=== PATIENT | male | born 1950 | race Caucasian/White ===

== ENCOUNTER 2017-12-24 02:13 | Outpatient (CLI) | payer MEDICARE, BC, SELFPAY ==
--- NOTE | 2017-12-28 14:29 | HOLTER_ITS ---
HOLTER MONITOR REPORT STUDY INDICATION: Arrhythmias. REQUESTING PROVIDER: Alonso Newell M.D. FINDINGS: The patient was monitored for one day. Baseline rhythm sinus rhythm with PAC's. Average heart rate 66 bpm, range 49-118 bpm. Frequent ventricular ectopy, 12,414 beats per day. No ventricular tachycardia. Rare PAC's, 33 per day. Three atrial runs, longest 5 beats, fastest 148 bpm. Nocturnal sinus bradycardia. No high-degree heart block. No pauses greater than three seconds. No patient events. FINAL INTERPRETATION: Very frequent PVC's, asymptomatic.
== END 2017-12-24 02:33 ==
PROVIDERS: PCP Family Medicine; Visit Provider Family Medicine
DX: R00.1 Bradycardia, unspecified (principal); I49.3 Ventricular premature depolarization; I49.1 Atrial premature depolarization
CPT/HCPCS: 93225

== ENCOUNTER 2017-12-28 09:18 | Outpatient (CLI) | payer MEDICARE, BC, SELFPAY | END 2017-12-28 09:38 | PROVIDERS: PCP Family Medicine; Visit Provider Family Medicine | DX: R00.1 Bradycardia, unspecified (principal); I49.3 Ventricular premature depolarization; I49.1 Atrial premature depolarization | CPT/HCPCS: 93226 ==

== ENCOUNTER 2017-12-28 11:14 | Outpatient (CLI) | payer MEDICARE, BC, SELFPAY | END 2017-12-28 11:34 | PROVIDERS: PCP Family Medicine; Referring Provider Family Medicine; Visit Provider Student in an Organized Health Care Education/Training Program | DX: R00.1 Bradycardia, unspecified (principal); I49.3 Ventricular premature depolarization; I49.1 Atrial premature depolarization | CPT/HCPCS: 93227 ==

== ENCOUNTER 2018-02-18 12:11 | Outpatient (CLI) | payer MEDICARE, BC, SELFPAY ==
[2018-02-18 15:05] LABS: Cholesterol 240 mg/dL (50-200); HDL Cholesterol 64 mg/dL (40-60); LDL CHOLESTEROL 163 mg/dL (<100); Triglyceride 53 mg/dL (30-150)
[2018-02-19 08:53] LABS: PSA, Screening 0.9 ng/ml (0-4.5)
== END 2018-02-18 12:31 ==
PROVIDERS: PCP Family Medicine; Visit Provider Urology
DX: E78.5 Hyperlipidemia, unspecified (principal); Z12.5 Encounter for screening for malignant neoplasm of prostate
CPT/HCPCS: 36415; 80061; 83721; 84153

== ENCOUNTER 2019-01-13 08:57 | Outpatient (CLI) | payer MEDICARE, BC, SELFPAY ==
[2019-01-13 11:07] LABS: Abs Immature Grans 0.01 k/cumm (0.0-0.09); Absolute Basophil Count 0.02 k/cumm (0.0-0.2); Absolute Eosinophil Count 0.14 k/cumm (0.0-0.7); Absolute Lymphocyte Count 1.43 k/cumm (1.2-3.4); Absolute Monocyte Count 0.63 k/cumm (0.11-0.7); Absolute Neutrophil Count 2.36 k/cumm (1.2-6.7); Basophils % 0.4; Eosinophils % 3.1; HCT 46.2 % (40.0-50.0); HGB 15.2 g/dL (13.5-17.5); Immature Grans % 0.2; Lymphocytes % 31.2; Mean Corp. HGB Concentration 32.9 g/dL (32.0-36.0); Mean Corpuscular Hemoglobin 32.2 pg (27.0-33.0); Mean Corpuscular Volume 97.9 fL (80-95); Mean Platelet Volume 10.1 fL (8.0-11.0); Monocytes % 13.7; Neutrophils % 51.4; Platelet Count 217 x1000/uL (130-400); RBC 4.72 m/cumm (4.50-6.00); RBC Distribution Width 13.5 % (11.8-14.1); White Blood Cell Count 4.59 k/cumm (4.4-10.8)
[2019-01-13 11:50] LABS: Anion Gap 8.9 mmol/L (3-11); BUN 23 mg/dL (7-18); CO2 29.1 mmol/L (21.0-32.0); CREATININE 1.09 mg/dL (0.70-1.30); Calcium 9.2 mg/dL (8.5-10.1); Calculated LDL 169 mg/dL; Chloride 106 mmol/L (98-107); Cholesterol 248 mg/dL (<200); Glucose 86 mg/dL (74-106); HDL Cholesterol 69 mg/dL (40-60); Potassium 4.5 mmol/L (3.5-5.1); Sodium 144 mmol/L (136-145); Triglyceride 50 mg/dL (<150)
== END 2019-01-13 09:17 ==
PROVIDERS: PCP Family Medicine; Visit Provider Family Medicine
DX: I10 Essential (primary) hypertension (principal); E78.5 Hyperlipidemia, unspecified; R53.83 Other fatigue
CPT/HCPCS: 36415; 80048; 80061; 85025

== ENCOUNTER 2019-02-24 09:35 | Outpatient (CLI) | payer MEDICARE, BC, SELFPAY ==
--- NOTE | 2019-02-24 09:29 | DI.RAD_ITS ---
EXAM: XR HAND RT COMPLETE INDICATION: R thumb pain and deformity, hand pain. COMPARISON: No exams were available for comparison TECHNIQUE: 2D digital imaging was performed. FINDINGS: There is moderate narrowing and spurring at the 1st metacarpal phalangeal joint. There is some flexi on at the 1st metacarpal phalangeal joint. There is also narrowing and periarticular spurring at the 2nd metacarpal phalangeal joint. Milder degenerative changes are seen in the interphalangeal joints of the fingers. IMPRESSION: Reff-km-ydnedfad degenerative changes, greatest at the 1st and 2nd metacarpal phalangeal joints.
--- NOTE | 2019-02-24 09:30 | DI.RAD_ITS ---
EXAM: XR HAND LT COMPLETE INDICATION: eval L thumb and hand pain. COMPARISON: XR HAND RT COMPLETE from 02/24/2019 TECHNIQUE: 2D digital imaging was performed. FINDINGS: There are tfpa-[id number]-qiccpqsg degenerative changes of the 1st MTP joint. There is some joint space narr owing and periarticular spurring. Degenerative changes are also noted at the interphalangeal joint o f the thumb. Milder degenerative changes are seen at the distal interphalangeal joints of the finger s. No bony erosions are identified. IMPRESSION: Degenerative changes, greater at the 1st carpal metacarpal joint.
== END 2019-02-24 09:55 ==
PROVIDERS: PCP Family Medicine; Referring Provider Family Medicine; Visit Provider Student in an Organized Health Care Education/Training Program
DX: M79.645 Pain in left finger(s) (principal); M18.12 Unilateral primary osteoarthritis of first carpometacarpal joint, left hand; M79.644 Pain in right finger(s); M18.11 Unilateral primary osteoarthritis of first carpometacarpal joint, right hand; M25.341 Other instability, right hand
CPT/HCPCS: 99203; 99214; 73130

== ENCOUNTER 2019-03-18 01:59 | Outpatient (CLI) | payer MEDICARE, BC, SELFPAY ==
[2019-03-18] MEDS: Breeza Beverage 473 ML BTL PO ×2 (08:50→08:51)
[2019-03-18] MEDS: Omnipaque 350 MG/ML 50 ML BTL IJ (08:51)
[2019-03-18] MEDS: Normal Saline - Diluent 50 ML VIAL IV (08:51)
[2019-03-18] MEDS: Omnipaque 350 MG/ML 100 ML BTL IJ (08:52)
--- NOTE | 2019-03-18 08:53 | DI.CT_ITS ---
EXAM: CT ABDOMEN W CLINICAL HISTORY: abdominal pain, not responsive to H2 basilio,R10.9 COMPARISON: No exams were available for comparison FINDINGS: CT examination of the abdomen was performed with a bolus infusion of 100 cc of Omnipaque 350 and horace stion of dilute barium. Images obtained through the lung bases are unremarkable. No significant hia julio c hernia seen. Liver and spleen appear normal. Pancreas appears normal. No biliary dilatation. Unremarkable appearance of the gallbladder by CT criteria. There is question of wall thickening of t he gastric antrum, gastritis not excluded. Endoscopic correlation may be obtained if clinically miley cated. Abdominal aorta is of normal diameter and no major vascular abnormality is seen. Unremarkable appear ance of the adrenals and kidneys. No adenopathy in the upper abdomen. IMPRESSION: Question gastric antral wall thickening, this could represent inflammation, endoscopic correlation s uggested to evaluate the possibility of gastritis or other pathology.
== END 2019-03-18 02:19 ==
PROVIDERS: PCP Family Medicine; Visit Provider Family Medicine
DX: R10.9 Unspecified abdominal pain (principal); K31.89 Other diseases of stomach and duodenum
CPT/HCPCS: 74160; J3490; Q9967

== ENCOUNTER → 2019-04-15 08:48 | Outpatient (BNVA) | payer MEDICARE, BC, SELFPAY | PROVIDERS: PCP Family Medicine; Referring Provider Family Medicine; Visit Provider Student in an Organized Health Care Education/Training Program | DX: M18.12 Unilateral primary osteoarthritis of first carpometacarpal joint, left hand (principal); M18.11 Unilateral primary osteoarthritis of first carpometacarpal joint, right hand; M25.341 Other instability, right hand | CPT/HCPCS: 99213 ==

== ENCOUNTER 2020-03-08 02:39 | Outpatient (CLI) | payer MEDICARE, BC, SELFPAY ==
[2020-03-09 13:38] LABS: COVID-19 RT-PCR UVMMC Result Negative (Negative)
== END 2020-03-08 02:59 ==
PROVIDERS: PCP Family Medicine; Visit Provider Family Medicine
DX: Z11.52 Encounter for screening for COVID-19 (principal); Z01.818 Encounter for other preprocedural examination
CPT/HCPCS: U0003

== ENCOUNTER 2020-03-12 01:09 | Outpatient (CLI) | payer MEDICARE, BC, SELFPAY ==
--- NOTE | 2020-03-12 09:00 | ETT_ITS ---
APPROVED REPORT Exam: Exercise Treadmill Patient Location: Out-Patient Room/Bed: Stress Nurse: Izzy Jones RN Ordering Provider:SABAS RODRIGUEZ, Contact Number: [phone] BMI: 5.20 Baseline Rhythm: Sinus Rhythm Comment: PVCs Indications: Chest pain, ESCOBAR Medical History Medical History: CISCO, arthritis, inguinal hernia repair, hyperlipidemia Cardiac Medications: None Allergies: NKA Cardiac Risk Factors: Hyperlipidemia, family hx Previous Cardiac Procedures: None Pretest Chest Pain Characteristics: None Exercise History: Physically active Physical Disabilities: None Lung Sounds: Clear to auscultation Heart Sounds: Regular Stress Test Details Test: Exercise stress testing was performed using a [place] protocol. Rest Stress HR Resting HR Supine: 63 bpm Max Heart Rate (APMHR): 149 bpm Resting HR Standin bpm Target HR (85% APMHR): 126 bpm Max HR Achieved: 160 bpm % of APMHR: 107 Recovery HR: 77 bpm HR response to stress: Normal HR response to stress BP Resting BP Supine: 146/82 mmHg Resting BP Standin/78 mmHg Max BP: 172/70 mmHg Recovery BP: 148/76 mmHg BP response to stress: Normal blood pressure response to stress. ECG Resting ECG: Sinus Rhythm Ectopy: PVCs Stress ECG: Sinus Tachycardia ST Change: No significant ST segment changes notedssion Arrhythmia: PAC, frequent PVCs, couplet, triplet, bigeminy Recovery ECG: Sinus Rhythm Recovery ST Change: No significant ST segment changes noted Recovery Arrhythmia: frequent PVCs, couplet, Clinical Reason for Termination: Dizziness, Fatigue Stress Symptoms: Dizziness, General Fatigue Exercise duration: 13 min04 sec Highest Stage Reached: Stage 5: 5.0 mph at 18% grade. Exercise capacity: 14.22 METs Rate Pressure Product: [id number] Stress ECG Conclusion 1. The patient exercised for 13 minutes (14 METS). Exercise was stopped due to fatigue. 2. The patient no symptoms suggestive of ischemia. 3. The patient had frequent PVCs both during exercise and recovery. These were polymorphic in nature . 4. There was no evidence of ischemia on the ECG portion of the exam. 5. The Mistry Score (12) estimates an annual cardiovascular mortality of 0% and a five year survival of 96%. Using the Mistry Score there is a low probability of any angiographic coronary disease.
[2020-03-12 11:08] LABS: Calculated LDL 154 mg/dL (<100); Cholesterol 234 mg/dL (<200); HDL Cholesterol 72 mg/dL (40-60); Triglyceride 43 mg/dL (<150)
== END 2020-03-12 01:29 ==
PROVIDERS: PCP Family Medicine; Visit Provider Nurse Practitioner Family
DX: R07.9 Chest pain, unspecified (principal); R06.09 Other forms of dyspnea; E78.5 Hyperlipidemia, unspecified; Z82.49 Family history of ischemic heart disease and other diseases of the circulatory system
CPT/HCPCS: 36415; 80061; 93016; 93018; 93017

== ENCOUNTER 2020-03-20 09:33 | Outpatient (CLI) | payer MEDICARE, BC, SELFPAY ==
[2020-03-20 13:05] LABS: HGB 14.9 g/dL (13.5-17.5); MCH 31.8 pg (27.0-33.0); MCHC 32.4 % (32.0-36.0); MCV 98.3 fL (80-95); MPV 10.5 fL (8.0-11.0); Platelet Count 206 10^3/uL (130-400); RBC 4.68 10^6/uL (4.36-5.78); RDW-SD 47.3 fL; WBC 3.71 10^3/uL (4.4-10.8)
[2020-03-20 17:01] LABS: Prolactin 6.1 ng/mL (2.1-17.7)
[2020-03-23 15:17] LABS: Testosterone, Free 9.72 ng/dL (3.28-12.2); Testosterone, Total 1080 ng/dL (240-950)
== END 2020-03-20 09:34 | disposition home or self-care (01) ==
LOC: LOS 09:33
PROVIDERS: PCP Family Medicine; Visit Provider Family Medicine
DX: D64.9 Anemia, unspecified (principal); N62 Hypertrophy of breast
CPT/HCPCS: 36415; 84402; 84403; 85027; 84146

== ENCOUNTER 2020-03-29 00:53 | Outpatient (CLI) | payer MEDICARE, BC, SELFPAY ==
--- NOTE | 2020-03-29 07:00 | DI.RAD_ITS ---
EXAM: XR CHEST 2V PA LATERAL CLINICAL HISTORY: chest pain with some sob on exertion,r07.9. TECHNIQUE: 2D digital imaging was performed. COMPARISON: No exams were available for comparison FINDINGS: Heart size is normal. The mediastinum is not widened. Lungs are clear. No infiltrates nor pleural effusions. IMPRESSION: No acute pulmonary findings. DATA REPOSITORY: RADIATION DOSE DELIVERED:
== END 2020-03-29 00:54 ==
LOC: DI 00:53
PROVIDERS: PCP Family Medicine; Visit Provider Family Medicine
DX: R07.9 Chest pain, unspecified (principal); R06.02 Shortness of breath
CPT/HCPCS: 71046

== ENCOUNTER 2020-09-07 01:33 | Outpatient (CLI) | payer MEDICARE, BC, SELFPAY ==
[2020-09-07 12:34] LABS: LDL CHOLESTEROL 126 mg/dL (<100)
== END 2020-09-07 01:34 | disposition home or self-care (01) ==
LOC: LOS 01:33
PROVIDERS: PCP Family Medicine; Visit Provider Family Medicine
DX: E78.5 Hyperlipidemia, unspecified (principal)
CPT/HCPCS: 36415; 83721

== ENCOUNTER 2021-06-17 01:29 | Outpatient (CLI) | payer MEDICARE, SELFPAY ==
--- OUTSIDE RECORDS SUMMARY | 2021-06-17 01:31 | XMS_ITS | Encounter Summary ---
:1950 Author Care Team Providers Name Role Phone Alonso Newell MD Primary Care Provider [phone] [facility] OTHER [phone] [facility] Medical Records OTHER [phone] Reason for Visit SLEEP CLINIC Follow-Up CPAP/BIPAP Therap y Assessment and Plan Assessment Note I provided greater than 40 minutes in e care of this patient, more than half the time was spent in [id number] counseling. 1. Obstructive sleep apnea syndr ome CISCO with an AHI of 24.4/hr usi ng APAP 6-16cm, dreamware [employer]. He was getting great compliance prior to using his repl acement machine this past fall. Since then he has had difficulty with exhalation due t o sensation of too much resistance. Review and comparison of download data no signi ficant difference in pressures. He has increased his humidity to 5, will have h im decrease and monitor. He is also due for replacement supplies and plans to call [employer] [facility] after this appointment. Other considerations is contact sales broker mirtha s there may be a possible machine malfunction. He will call our office elvin t for update and if no improvement in symptoms after adjusting humidity, will consider titration study to include cpap/BiPap. Discussion Note: None recorded.Patient educational handouts: No information available. 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 ? recorded. Referral None ? ? recorded. Procedures None ? ? recorded. Surgeries None ? ? recorded. Imaging None ? ? recorded. Medications Name Start Date ? ? finasteride 5 mg tablet ? TAKE ONE TABLET BY MOUTH AT BEDTIME naproxen sodium 220 mg capsule ? Take 1 capsule every day by oral route as needed. simvastatin 10 mg tablet ? TAKE ONE TABLET BY MOUTH EVERY DAY Medications Administered None recorded. Vitals Height Weight BMI Blood Pressure 5 ft 9.5 in 184.9 lbs 26.9 kg/m2 132/72 mm[Hg] Results Lab Results None recorded. Allergies Code Code System Name Reaction Severity Onset NKDA ? ? ? Problems Name Status Onset Date Source ? Onychomycosis Active 03/25/2021 ? Basal Cell Carcinoma of Nose Active 03/25/2021 ? Polyp of Colon Active 03/25/2021 ? Tubular Adenoma Active 03/25/2021 ? Hyperlipidemia Active 03/25/2021 ? Heart Irregularly Irregular Active 03/25/2021 ? Left Inguinal Hernia Active 03/25/2021 ? Gynecomastia Active 03/25/2021 ? Osteoarthrosis of the Carpometacarpal Active 03/25/2021 ? Joint of the Thumb Arthritis Active 03/25/2021 ? Lumbago with Sciatica Active 03/25/2021 ? Foot Pain Active 03/25/2021 ? Chest Pain Active 03/25/2021 ? Gluten Sensitivity Active 03/25/2021 ? Unstable Joint of Finger of Right Hand Active ? Pain of Left Knee Joint Active 03/25/2021 ? Pain of Left Knee Region Active 03/25/2021 ? Obstructive Sleep Apnea of Adult Active ? ? Obstructive Sleep Apnea Syndrome Active ? History Migraine Active ? ? Benign Prostatic Hyperplasia Active ? ? Bicuspid Aortic Valve Active ? ? Procedure by Method Active ? History Procedures None recorded. Vaccine List None recorded. Social History Tobacco Smoking Status Never Smoker What is your level of alcohol None consumption? Live alone or with others? with others Notes: wit h Live alone or with others? with others Are you currently employed? N Language Difficulties No Hard of hearing or deaf in one or both N ears? What was the date of your most recent 07/01/2017 tobacco screening? What is your level of caffeine Notes: coke: 3 per week consumption? What is your occupation? retired Functional Status Unknown. Past Encounters 04/05/2021 Obstructive Sleep Apnea Syndrome Chanelle Rodriguez, FILM VAULT SUPERVISOR: [address] [place] [phone], Ph. History of Present Illness Note: <p>REASON FOR VISIT: Onesimo Marie comes in today for CPAP compliance follow-up.</p><div>
</div><p> 01/30/17. He had a PSG 03/31/16 with an AHI of 24.4/hr and sp02 ernst 78%. At that time he elected to pursue an oral appliance. referral was made to Dr. Hudson but he never heard anything from Dr. Hudson's office. He was then started on CPAP 6-16cm with a Dreamwear mask through [employer].excellent compliance and reduction in AHI with significant symptomatic improvement. No changes were made.</p><div>
</div><p>07/01/2017: continues to tolerate Dreamwear very well. No excessive leak or dryness or irritation.uses CPAP for his total sleep time. He is sleeping soundly. He tends to wake once at 2am and can get back to sleep within 2 minutes. No choking/gasping, snoring, nocturia 1/night after about 6-7 hours of sleep.No night sweats. No nocturnal heartburn. He has adequate energy to get through his day which is muchbetter than it was prior to starting on CPAP. He is not napping and denies drowsy driving. </p><div>
</div><div>04/05/2021: He received his replacement machine mid fall,since then he has had difficulty with exhaling, feels there is too much resistance. He is waking up 2-3 times at night, once to void and other times not sure why. His bedtime is around 8-10 pm and typically takes 1 hr to fall asleep. He does take a 20 min nap during the day. He feels is sleep quality is Okay to poor and has low energy. He notes loud snoring when he is not using his cpap. He also mentions his sheets are messy after sleep. He has noted nasal congestion and therefore increased the humidity on his cpap machine to 5. </div><div>
</div><div>ESS 11/02</di v><div>
</div><p>COMPLIANCE REVIEW: 03/05/2021-04/03/2021 used 26/30 days, ave use 4hrs 4 min, mean pressure 6.2cm, 90th percentile pressure 7.2 cmH2O,average time in large leak 7 secs, AHI 1.6/hr.</p>Review of Systems: ROS as noted in the HPI Review of Systems ? Notes: <div>A 10-point REVIEW OF SY STEM was obtained and reviewed, includes CONSTITUTIONAL, EYES, NOSE, THROAT, RESPIRATORY, HEART, GASTROINTESTINAL, UROLOGIC, MUSCULOSKELETAL, P SYCHIATRY, SKIN systems. Pertinent symptoms are discussed in history</div> Physical Exam ? Notes: <p>General: A&O, well groome d {{over weight obese morbidly obese normal weight * thin}}.
HEAD: n ormocephalic & atraumatic. Retrognathia.
EYES: non icteric.
LUNGS: CTA a ll rodriguez. Good air movement.
CARDIO: RRR without murmur, gallop or th rill.
NEURO: A&O. Normal gait.
PSYCH: Normal mood and affect.
CUTANEOU S: no overt lesions or rashes</p>
--- OUTSIDE RECORDS SUMMARY | 2021-06-17 01:31 | XMS_ITS ---
:1950 Author Care Team Providers Name Role Phone DR. TOMMIE ARIAS Primary Care Provider [phone] DR. TOMMIE ARIAS Referring Provider [phone] Allergies Code Code System Name Reaction Severity Status Onset NKDA ? Medications Name Status Start Date Stop Date ? ? finasteride 5 mg tablet Active ? Not avai lable Take 1 tablet every day by oral route. naproxen sodium 220 mg capsule Active ? N ot available Take 1 capsule every day by oral route as needed. omeprazole 20 mg capsule,delayed release Active ? Not available Take 1 capsule every day by oral route. simvastatin Active ? Not available 10mg daily tamsulosin 0.4 mg capsule Active ? Not av ailable Take 1 capsule every day by oral route. Problems Name Status Onset Date Source ? Left Inguinal Hernia Active ? ? Benign Prostatic Hyperplasia Active ? ? Gluten Sensitivity Active ? ? Procedures Date Name Performed by ? 10/01/2016 Mohs Surgery Information not avai lable Notes: Left side of nose 01/09/2016 Colonoscopy Information not avai lable ? Hernia Repair Information not avai lable Notes: per patient Left inguinal ? Arthroscopy Information not avai lable Notes: Right knee, with MCL repair ? Repair of Tendon Information not avai lable Notes: Right achilles tendon Results Lab Results Date Name Specimen Result Interpretation Description Value Range Status Address ? 09/19/2020 Surgical ? Ssr see ? [place] [facility] separate [facility] Study report Laboratory & Pathology: [address] [place] [address] 09/18/2020 SARS [id number] Normal Sars negative negative [place] Coronavirus Cov 2 [facility] julio c RNA, Qual, Labora tory PCR, & Unspecified Patho logy: Specimen 90 [facility] Past Encounters None recorded. Social History Tobacco Smoking Status Never Smoker Vaccine List Vaccine Type COVID-19 (SARS-COV-2) vaccine, unspecifi ed 03/30/2020 04/27/2020 Plan of Care Reminders Provider Appointments None ? ? recorded. Lab None ? ? recorded. Referral None ? ? recorded. Procedures None ? ? recorded. Surgeries None ? ? recorded. Imaging None ? ? recorded. Vitals Height Weight BMI Blood Pressure 175.26 cm 77.11 kg 25.1 kg/m2 122/62 mm[Hg]
--- OUTSIDE RECORDS SUMMARY | 2021-06-17 01:31 | XMS_ITS ---
:1950 Author Care Team Providers Name Role Phone [facility] OTHER [phone] TOMMIE ARIAS MD Primary Care Provider [phone] [facility] MEDICAL RECORDS OTHER [phone] Allergies Code Code System Name Reaction Severity Status Onset NKDA ? Medications Name Status Start Date Stop Date ? ? Ambien 10 mg tablet Completed 03/06/2016 03/07/2016 1 (one) Tablet: qhs - at bedtime prn doxycycline hyclate 100 mg Completed ? 07/01 tablet finasteride 5 mg tablet Active ? Not avai lable TAKE ONE TABLET BY MOUTH AT BEDTIME naproxen sodium 220 mg capsule Active ? N ot available Take 1 capsule every day by oral route as needed. omeprazole 20 mg capsule,delayed release Completed ? 04/05/2021 Take 1 capsule every day by oral route. penicillin V potassium 500 mg Completed ? tablet simvastatin 10 mg tablet Active ? Not david ilable TAKE ONE TABLET BY MOUTH EVERY DAY simvastatin 5 mg tablet Completed ? 04/05/19 22 TAKE ONE TABLET BY MOUTH AT BEDTIME Problems Name Status Onset Date Source ? [...] Method Active ? History Procedures None recorded. Results Lab Results None recorded. 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 Social History Tobacco Smoking Status Never Smoker Vaccine List None recorded. Plan of Care Reminders Provider Appointments None ? ? recorded. Lab None ? ? recorded. Referral None ? ? recorded. Procedures None ? ? recorded. Surgeries None ? ? recorded. Imaging None ? ? recorded. Vitals 04/05/2021 08:45AM New Patient 43 Height Weight BMI Blood Pressure 176.53 cm 83.87 kg 26.9 kg/m2 132/72 mm[Hg] 07/01/2017 11:30AM Office 15 Height Weight BMI Blood Pressure 175.26 cm 79.24 kg 25.8 kg/m2 140/78 mm[Hg] 01/30/2017 Height Blood Pressure 175.26 cm 132/80 mm[Hg] 01/30/2017 Weight 80.74 kg 11/13/2016 Weight 79.97 kg 11/13/2016 Height Blood Pressure 175.26 cm 112/70 mm[Hg] 04/21/2016 Weight 80.29 kg 04/21/2016 Height Blood Pressure 175.26 cm 118/78 mm[Hg] 03/06/2016 Weight 80.43 kg 03/06/2016 Height Blood Pressure 175.26 cm 128/78 mm[Hg]
[2021-06-17 13:01] LABS: Calculated LDL 99 mg/dL (<100); Cholesterol 180 mg/dL (<200); HDL Cholesterol 74 mg/dL (40-60); Triglyceride 39 mg/dL (<150)
== END 2021-06-17 01:30 | disposition home or self-care (01) ==
LOC: LOS 01:30
PROVIDERS: PCP Family Medicine; Visit Provider Family Medicine
DX: E78.5 Hyperlipidemia, unspecified (principal)
CPT/HCPCS: 36415; 80061

== ENCOUNTER 2021-10-21 11:38 | Emergency (ER) | payer MEDICARE, SELFPAY ==
[2021-10-21] VITALS (27 sets, daily range): BP systolic 118; BP diastolic 81; PULSE 57–67; RESP 14–21; TEMP 36.4; O2SAT 95–98
--- NOTE | 2021-10-21 11:30 | RT.EKG_ITS ---
APPROVED REPORT Exam: Resting ECG Reason for Exam: chest pain Patient Location: E HR:67 bpm ECG Measurements Heart Rate 67 AXIS HI 142 P -14 QRSd 97 QRS -10 QT 378 T 30 QTc 398 Conclusion Sinus rhythm...normal P axis, V-rate 60- 99 sinus rhythm at 67, normal axis, no major change from prior 03/05/2020, no STEMI, nondiagnostic EKG
--- NOTE | 2021-10-21 11:47 | ED.GENADUL_ITS ---
Discharge Plan Disposition Patient Disposition: HOME Condition: Improving Discharge Details Clinical Impression: Chest pain Primary Care Provider: Alonso Newell ED Provider: Kim Singh Home Meds and New Rx's Prescriptions: Continued naproxen sodium [Aleve] 220 mg capsule 220 mg PO DAILY PRN simvastatin 10 mg tablet 10 mg PO DAILY Qty: 90 3RF finasteride [Proscar] 5 mg tablet 5 mg PO HS Qty: 90 3RF Rx Instructions: 1 TAB HS Discharge Instructions Instructions: Chest Pain (ED) Additional Instructions: You were offered admission for further evaluation of your chest pain and declined. You may return to the emergency department at any time if you change your mind. Please return immediately to the emergency department if you develop any new or worsening symptoms, if your condition does not improve as expected, or if you become otherwise concerned. It is extremely important that you call soon as possible to make an appointment to be seen in follow-up for this visit by your primary care doctor. You will also need to have a stress test performed as we discussed. This has been ordered at today's encounter. Referrals: Alonso Newell MD [Primary Care Provider] - Discharge Data Discharge Date/Time-TO BE ENTERED AT DEPARTURE: 10/21/21 17:56 Medical Decision Making Concern for ACS, pulmonary embolism, MSK pain, GERD, other. Exam/hx at this time is not c/w acute aortic pathology, sepsis, other. Plan for EKG, screening labs, CXR, telemetry, IV placement. Will monitor and reassess. Plan for repeat trop, EKG if initial work-up neg. Trop neg. CXR neg. D-dimer elevated, plan for CT chest. Pt remains asymptomatic, no complaint on reassessment. CT chest neg for acute process per radiology. Repeat trop, repeat EKG not dynamic. Pt requesting d/c to home. Plan for admission for further eval for possible cardiac etiology of pain. Pt refuses admission at this time. I discussed with Pt the risks of , permanent disabilty. Pt verbalized understandin of the risks and continued to refuse admission. Pt with decision making capacity. Plan for outpt f/u, outpt stress test. I had a discussion with Patient regarding return to emergency department precautions, home care, and importance of outpatient follow-up. Pt verbalizes understanding of the plan and is amenable. Patient discharged to home with clear plan for outpatient follow- up. All questions were answered. Disposition decision was made weighing the risks and benefits of hospitalization versus outpatient treatment, the risk for further decompensation, and the patient's wishes. Medical Records Medical records reviewed: Yes I reviewed the patient's medical records. Imaging Data Radiologic Study: Radiologist's impression: EXAM: ? CT CHEST PE CTA CLINICAL HISTORY: ? chest pain. ? TECHNIQUE:? Imaging Protocol: CT angiography of the chest was performed using pulmonary embolus protocol.? Multi planar reconstructions were performed. CONTRAST MATERIAL:? Intravenous: Omnipaque 350 Contrast volume: 100 cc COMPARISON:? CT CT ABDOMEN W from 03/18/2019 CR XR PORTABLE CHEST AP from 10/21/2021 FINDINGS: CHEST: PULMONARY ARTERIES: There are no intraluminal filling defects to suggest acute pulmonary emboli. LUNGS: Tiny granuloma in the lateral aspect of the right upper lobe is noted measuring 2 millimeters..? No ominous pulmonary nodules identified.? No infiltrates.? No pleural effusions. MEDIASTINUM: There is no hilar nor mediastinal adenopathy. Visualized thyroid unremarkable. CARDIAC: Mild cardiomegaly.? No pericardial effusion.Caliber of the thoracic aorta is within normal limits. No dissection.? There is no significant shift of the interventricular septum. PARTIALLY VISUALIZED UPPERMOST ABDOMEN: No obvious findings OSSEOUS: No significant osseous lesions.. IMPRESSION: 1. No evidence of acute pulmonary emboli.? No evidence of pulmonary infarction.No pleural effusions. 2. Mild cardiomegaly.? No pericardial effusion.? No aortic dissection. EXAM:? XR PORTABLE CHEST AP CLINICAL HISTORY: ? chest pain. ? TECHNIQUE:? 2D digital imaging was performed. COMPARISON:? CR XR CHEST 2V PA ? LATERAL from 03/29/2020 FINDINGS: Single AP portable view. Heart size is upper normal.? The mediastinum is not widened. Lungs are clear.? No infiltrates nor obvious pleural effusions. IMPRESSION: No acute pulmonary findings on this single AP portable view of the chest. Lab Data Lab results reviewed: Yes I reviewed the patient's lab results. Labs: Laboratory Tests Range/Units 10/21/21 10/21/21 10/21/21 13:02 13:02 13:02 WBC (4.4-10.8) 10^3/uL 5.31 RBC (4.36-5.78) 10^6/uL 4.77 Hgb (13.5-17.5) g/dL 15.6 Hct (40.0-50.0) % 46.9 MCV (80-95) fL 98 H MCH (27.0-33.0) pg 32.7 MCHC (32.0-36.0) % 33.3 RDW (11.8-14.1) % 12.4 Plt Count (130-400) 10^3/uL 219 MPV (8.0-11.0) fL 10.4 Immature Gran % 0.2 Neutrophils % 72.7 Lymphocytes % 16.2 Monocytes % 9.4 Eosinophils % 0.9 Basophils % 0.6 Nucleated RBC % (0.0-0.3) % 0.0 Absolute Neutrophils (1.2-6.7) 10^3/uL 3.86 Absolute Lymphocytes (1.2-3.4) 10^3/uL 0.86 L Absolute Monocytes (0.1-0.8) 10^3/uL 0.50 Absolute Eosinophils (0.0-0.7) 10^3/uL 0.05 Absolute Basophils (0.0-0.2) 10^3/uL 0.03 D-Dimer (<500) ng/mlFEU 597 H Sodium (136-145) mmol/L 142 Potassium (3.5-5.1) mmol/L 4.5 Chloride (98-107) mmol/L 104 Carbon Dioxide (21.0-32.0) mmol/L 29.2 Anion Gap (3-11) mmol/L 8.8 BUN (7-18) mg/dL 30 H Creatinine (0.70-1.30) mg/dL 1.2 Est GFR (CKD-EPI 2020) (mL/min/1.73m2) 64.25 Glucose (74-106) mg/dL 86 Calcium (8.5-10.1) mg/dL 9.5 Total Bilirubin (0.2-1.0) mg/dL 0.6 AST (15-37) U/L 24 ALT (16-63) U/L 31 Alkaline Phosphatase (46-116) U/L 78 Troponin I (<or=60) ng/L < 50 Total Protein (6.4-8.2) g/dL 7.3 Albumin (3.4-5.0) g/dL 4.1 Range/Units 10/21/21 16:30 WBC (4.4-10.8) 10^3/uL RBC (4.36-5.78) 10^6/uL Hgb (13.5-17.5) g/dL Hct (40.0-50.0) % MCV (80-95) fL MCH (27.0-33.0) pg MCHC (32.0-36.0) % RDW (11.8-14.1) % Plt Count (130-400) 10^3/uL MPV (8.0-11.0) fL Immature Gran % Neutrophils % Lymphocytes % Monocytes % Eosinophils % Basophils % Nucleated RBC % (0.0-0.3) % Absolute Neutrophils (1.2-6.7) 10^3/uL Absolute Lymphocytes (1.2-3.4) 10^3/uL Absolute Monocytes (0.1-0.8) 10^3/uL Absolute Eosinophils (0.0-0.7) 10^3/uL Absolute Basophils (0.0-0.2) 10^3/uL D-Dimer (<500) ng/mlFEU Sodium (136-145) mmol/L Potassium (3.5-5.1) mmol/L Chloride (98-107) mmol/L Carbon Dioxide (21.0-32.0) mmol/L Anion Gap (3-11) mmol/L BUN (7-18) mg/dL Creatinine (0.70-1.30) mg/dL Est GFR (CKD-EPI 2020) (mL/min/1.73m2) Glucose (74-106) mg/dL Calcium (8.5-10.1) mg/dL Total Bilirubin (0.2-1.0) mg/dL AST (15-37) U/L ALT (16-63) U/L Alkaline Phosphatase (46-116) U/L Troponin I (<or=60) ng/L < 50 Total Protein (6.4-8.2) g/dL Albumin (3.4-5.0) g/dL ECG Data Attestation: I personally reviewed and interpreted this ECG (s) as follows: Interpretation: EKG shows sinus rhythm at 67, normal axis, no major change from prior 03/05/2020, no STEMI, nondiagnostic EKG Repeat EKG shows sinus danilo at 57, normal axis, no major change from prior, no STEMI, non-diagnostic EKG HPI General Date/Time Provider Initiated Documentation: 10/21/21 11:39 . Limitations to Documentation: no limitations . Information obtained by: patient, family, RN notes reviewed and old records reviewed . HPI Narrative: Onesimo Marie is a 70-year-old man with a history of hyperlipidemia, bicuspid aortic valve presenting to emergency department with chest pain. Patient reports that this morning he has been shoveling dirt outside and exerting himself quite a bit. Patient reports that he came in, took a shower, and sat down in a chair. Patient reports that he had been asymptomatic up until that point. He reports that while sitting in chair he developed chest pain, sweating, and lightheadedness. Patient reports that this lasted for 20 minutes or so and then resolved. Patient reports that when he arrived to the emergency department he did notice some left-sided jaw pain, however at this time jaw pain has resolved. He states that at this time he feels well and in his usual state of health. He denies any current pain, cough, shortness of breath, fever, vomiting, diarrhea, numbness, weakness, rash. Patient reports that he has never had similar symptoms in the past. Patient reports that he has never had exertional symptoms/chest pain in the past and does exert himself frequently. Normal appetite. Denies recent illness. Related Data Home Medications Medication Instructions Recorded Confirmed naproxen sodium 220 mg capsule 220 mg PO DAILY PRN 01/11/19 11/12/21 (Aleve) simvastatin 10 mg tablet 10 mg PO DAILY #90 tabs 09/08/20 11/12/21 finasteride 5 mg tablet (Proscar) 5 mg PO HS #90 tab-caps 07/17/21 11/12/21 Previous Rx's Medication Instructions Recorded simvastatin 10 mg tablet 10 mg PO DAILY #90 tabs 09/08/20 finasteride 5 mg tablet (Proscar) 5 mg PO HS #90 tab-caps 07/17/21 Allergies Allergy/AdvReac Type Severity Reaction Status Date / Time No Known Allergies Allergy Verified 11/12/21 10:28 General Stated Complaint: Chest Pain SHEMAR: 2 Review of Systems Narrative: Constitutional: denies fevers Eyes: denies eye pain ENT: denies ear pain, dental pain, sore throat Cardiovascular: denies edema, reports chest pain Respiratory: denies SOB, cough GI: denies abdominal pain, vomiting, diarrhea : denies flank pain MSK: denies back pain, neck pain, arthralgias, myalgias Skin: denies rash Neuro: denies headaches, numbness, weakness PFSH All Active Problems Laceration of hand, left (Acute) Chest pain (Acute) Hyperlipemia (Acute) Chest pain (Acute) Gynecomastia (Acute) Gluten intolerance (Acute) Left inguinal hernia (Acute) Arthritis of carpometacarpal (CMC) joint of left thumb (Acute) Arthritis of carpometacarpal (CMC) joint of right thumb (Acute) 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 (Acute) Arthritis of both hands (Acute) Irregularly irregular pulse rhythm (Acute) EKG: SR will get holter Basal cell carcinoma of nose (Acute) Tubular adenoma (Acute) 01/08/02 01/09/16 Polyp of colon (Acute 01/09/16) adenoma, 01/08/2002 Onychomycosis (Acute) Migraine (Acute) Lumbago (Acute 10/26/12) Left knee pain (Acute 11/16/14) Foot pain (Acute 10/26/12) Bicuspid aortic valve (Acute) dental prophylaxis Benign prostatic hyperplasia (Acute) hematuria; -cysto Actinic keratosis of scalp (Acute) Medical History BPH (benign prostatic hypertrophy) with urinary obstruction Surgical History Arthroplasty of knee (12/08/14) LEFT KNEE MEDIAL MENISCUS/ Colonoscopy - IV Sedation (01/09/16) [place] micrographic [place] [facility] [place] of the nose Repair, Tendon or Muscle RIGHT ACHILLES TENDON S/P inguinal hernia repair (~09/08/19[place] [facility] [place] Family History Mother , AGE 84 Essential hypertension Heart disease Hyperlipidemia Father , AGE 74 Essential hypertension Stroke Sister No problems noted. Sister No problems noted. Sister No problems noted. Son No problems noted. Daughter No problems noted. Daughter No problems noted. Social History Smoking/Tobacco Use Status: Never Second Hand Exposure: Yes Smoking risk assessment performed?: Yes Alcohol Intake: never Drug use: Never Substance use type: does not use Counseling given: No Counseling provided: none Caregiver/Support person: No Household members: spouse Housing: house Communication Needs: None Do you need help understanding health information?: Rarely Pets and animals: No Sexually active: No Do you think of yourself as: straight/heterosexual Current gender identity: male What is your relationship status?: How often do you talk on the phone with friends or family?: three or more times per week How often do you get together with friends or relatives?: once per week How often do you attend judaism or restorationism services?: 4 or more times per year Do you belong to any clubs or organized social groups?: yes Panel score (0-1 are the most socially isolated patients): 4 What type of physical activity do you participate in: walking, bicycling and other Details: snowshoeing Duration: 45-60 minutes/day Frequency: 3-4 times per week Lashonda/Yazidism: [facility] Special lashonda needs: No Seatbelt use: always Drive intox or ride w/intox commercial driver's license driver: No Do you feel safe at home: Yes Do you feel safe in your relationship?: Yes Exam Narrative Exam Narrative: Constitutional: well and [id number], pleasant, conversing normally HENT: head atraumatic/normocephalic/normal inspection, mucous membranes moist Eyes: conjunctiva normal, sclera normal, pupils 3mm b/l Neck: no stridor, normal ROM, trachea midline Chest: normal inspection, no chest wall tenderness to palpation Resp: normal work of breathing, LCTAB Cardio: normal rate, normal rhythm, no murmur appreciated GI: abdomen soft, non-tender, non-distended Back: normal inspection, no rash Skin: warm, dry, normal color, no rash Neuro: alert, not altered, grossly non-focal, normal tone Ext: no edema, no posterior calf TTP Psych: normal mood, normal affect, normal behavior Course Vital Signs Vital signs: Vital Signs Temperature 36.4 C L 10/21/21 11:41 Pulse 67 10/21/21 11:41 Respiratory Rate 18 10/21/21 11:41 Blood Pressure 118/81 10/21/21 11:41 Pulse Oximetry 97 10/21/21 11:41 Temperature 36.4 C L 10/21/21 11:41 Temperature Source Temporal Artery Scan 10/21/21 11:41 Pulse 67 10/21/21 11:41 Respiratory Rate 18 10/21/21 11:41 Blood Pressure 118/81 10/21/21 11:41 Blood Pressure Position Sitting 10/21/21 11:41 Pulse Oximetry 97 10/21/21 11:41 Oxygen Delivery Method Room Air 10/21/21 11:41 Oxygen Flow Rate 0 10/21/21 11:41
[2021-10-21 13:31] LABS: Abs Immature Grans 0.01 10^3/uL (0.0-0.06); Absolute Basophil Count 0.03 10^3/uL (0.0-0.2); Absolute Eosinophil Count 0.05 10^3/uL (0.0-0.7); Absolute Lymphocyte Count 0.86 10^3/uL (1.2-3.4); Absolute Neutrophil Count 3.86 10^3/uL (1.2-6.7); Basophils % 0.6; Eosinophils % 0.9; HCT 46.9 % (40.0-50.0); HGB 15.6 g/dL (13.5-17.5); Immature Grans % 0.2; Lymphocytes % 16.2; MCH 32.7 pg (27.0-33.0); MCHC 33.3 % (32.0-36.0); MCV 98 fL (80-95); MPV 10.4 fL (8.0-11.0); Monocytes % 9.4; Neutrophils % 72.7; Platelet Count 219 10^3/uL (130-400); RBC 4.77 10^6/uL (4.36-5.78); RDW 12.4 % (11.8-14.1); RDW-SD 45.4 fL; WBC 5.31 10^3/uL (4.4-10.8)
--- NOTE | 2021-10-21 13:39 | DI.RAD_ITS ---
Exam(s) XR PORTABLE CHEST AP EXAM: XR PORTABLE CHEST AP CLINICAL HISTORY: chest pain. TECHNIQUE: 2D digital imaging was performed. COMPARISON: CR XR CHEST 2V PA LATERAL from 03/29/2020 FINDINGS: Single AP portable view. Heart size is upper normal. The mediastinum is not widened. Lungs are clear. No infiltrates nor obvious pleural effusions. IMPRESSION: No acute pulmonary findings on this single AP portable view of the chest. DATA REPOSITORY: RADIATION DOSE DELIVERED: All CT scans at this facility use at least one of these dose optimization techniques: automated exposure control; mA and/or kV adjustment per patient size (includes targeted e xams where dose is matched to clinical indication); or iterative reconstruction.
[2021-10-21 14:02] LABS: ALT 31 U/L (16-63); AST 24 U/L (15-37); Albumin 4.1 g/dL (3.4-5.0); Alkaline Phosphatase 78 U/L (46-116); Anion Gap 8.8 mmol/L (3-11); BUN 30 mg/dL (7-18); Bilirubin, Total 0.6 mg/dL (0.2-1.0); CO2 29.2 mmol/L (21.0-32.0); CREATININE 1.2 mg/dL (0.70-1.30); Calcium 9.5 mg/dL (8.5-10.1); Chloride 104 mmol/L (98-107); Estimated GFR 64.25 (mL/min/1.73m2); Glucose 86 mg/dL (74-106); Potassium 4.5 mmol/L (3.5-5.1); Sodium 142 mmol/L (136-145); Total Protein 7.3 g/dL (6.4-8.2); Troponin I < 50 ng/L (<or=60)
[2021-10-21 14:08] LABS: D-Dimer 597 ng/mlFEU (<500)
--- NOTE | 2021-10-21 14:30 | DI.CT_ITS ---
Exam(s) CT CHEST PE CTA EXAM: CT CHEST PE CTA CLINICAL HISTORY: chest pain. TECHNIQUE: Imaging Protocol: CT angiography of the chest was performed using pulmonary embolus grecia col. Multi planar reconstructions were performed. CONTRAST MATERIAL: Intravenous: Omnipaque 350 Contrast volume: 100 cc COMPARISON: CT CT ABDOMEN W from 03/18/2019 CR XR PORTABLE CHEST AP from 10/21/2021 FINDINGS: CHEST: PULMONARY ARTERIES: There are no intraluminal filling defects to suggest acute pulmonary emboli. LUNGS: Tiny granuloma in the lateral aspect of the right upper lobe is noted measuring 2 millimeters. . No ominous pulmonary nodules identified. No infiltrates. No pleural effusions. MEDIASTINUM: There is no hilar nor mediastinal adenopathy. Visualized thyroid unremarkable. CARDIAC: Mild cardiomegaly. No pericardial effusion.Caliber of the thoracic aorta is within normal l imits. No dissection. There is no significant shift of the interventricular septum. PARTIALLY VISUALIZED UPPERMOST ABDOMEN: No obvious findings OSSEOUS: No significant osseous lesions.. IMPRESSION: 1. No evidence of acute pulmonary emboli. No evidence of pulmonary infarction.No pleural effusions. 2. Mild cardiomegaly. No pericardial effusion. No aortic dissection. 3. RADIATION DOSE DELIVERED: 399.47mGy.cm Total DLP DATA REPOSITORY: All CT scans at this facility are submitted to the National Radiology Data Registry (NRDR) Dose Index Registry (DIR) with the [employer] (ACR). RADIATION OPTIMIZATION: All CT scans at this facility use at least one of these dose optimization te chniques: automated exposure control; mA and/or kV adjustment per patient size (includes targeted exa ms where dose is matched to clinical indication); or iterative reconstruction.
[2021-10-21] MEDS: Omnipaque 350 MG/ML 100 ML BTL IJ (16:44)
--- NOTE | 2021-10-21 17:03 | DI.VRAD_ITS ---
PROCEDURE INFORMATION: Exam: CTA Chest With Contrast Exam date and time: 10/21/2021 4:29 PM Age: 70 years old Clinical indication: Shortness of breath TECHNIQUE: Imaging protocol: Computed tomographic angiography of the chest with contrast. 3D rendering (Not supervised by radiologist): MIP and/or 3D reconstructed images were created by the technologist. Radiation optimization: All CT scans at this facility use at least one of these dose optimization techniques: automated exposure control; mA and/or kV adjustment per patient size (includes targeted exams where dose is matched to clinical indication); or iterative reconstruction. Contrast material: OMNIPAQUE 350; Contrast volume: 100 ml; Contrast route: INTRAVENOUS (IV); COMPARISON: CR XR PORTABLE CHEST AP 10/21/2021 1:13 PM FINDINGS: Pulmonary arteries: Normal. No pulmonary emboli. Aorta: Mild atherosclerotic calcification of the aorta. Lungs: Subcentimeter pulmonary nodules. Index 3 mm nodule noted in the right upper lobe on series 5, image 244. No focal consolidation. Pleural spaces: Unremarkable. No pneumothorax. No pleural effusion. Heart: The heart appears mildly enlarged. No pericardial effusion. Lymph nodes: Unremarkable. No enlarged lymph nodes. Bones/joints: Moderate multilevel degenerative changes of the spine. Soft tissues: Unremarkable. IMPRESSION: 1. No pulmonary emboli identified. 2. Subcentimeter pulmonary nodules. For patients at low risk (minimal or absent history of smoking and of other known risk factors), no routine follow-up is indicated. For patients at high risk (history of smoking or of other known risk factors), consider optional CT Chest at 12 months. (Reference: Reynaldo) REFERENCES: Sharitahoshanice H, et al. Guidelines for Management of Incidental Pulmonary Nodules Detected on CT Images: From the Fleischner Society 2017. Radiology. 2017;284(1):228-243. Dictated and Authenticated by: Kyle Siegel MD. Ordering:FABIENNE Alvarez MD
[2021-10-21 17:12] LABS: Troponin I < 50 ng/L (<or=60)
--- NOTE | 2021-10-21 17:30 | RT.EKG_ITS ---
APPROVED REPORT Exam: Resting ECG Reason for Exam: repeat Patient Location: E HR:57 bpm ECG Measurements Heart Rate 57 AXIS MD 166 P -3 QRSd 91 QRS -17 QT 416 T 14 QTc 405 Conclusion Sinus bradycardia...rate< 60 sinus danilo at 57, normal axis, no major change from prior, no STEMI, non-diagnostic EKG
--- NOTE | 2021-10-21 18:00 | NUR.NOTE ---
Nursing Note: Request for regular exercise treadmill stress test faxed to [facility]. Referral faxed to PCP for chest pain, 1 to 2 weeks and noted that stress test order sent to [facility].
--- NOTE | 2021-10-22 07:22 | NUR.NOTE ---
Nursing Note: Referral faxed to PCP for chest pain in 1 to 2 weeks. Noted order placed for stress test.
== END 2021-10-21 17:56 | disposition home or self-care (01) ==
PROVIDERS: Emergency Provider Student in an Organized Health Care Education/Training Program; PCP Family Medicine
DX: R07.9 Chest pain, unspecified (principal); R79.89 Other specified abnormal findings of blood chemistry
CPT/HCPCS: 36415; 71275; 80053; 93005; 99285; 71045; 84484; 85025; 85379; 93010; J3490

== ENCOUNTER → 2021-10-29 00:42 | Outpatient (CLI) | payer MEDICARE, SELFPAY ==
--- NOTE | 2021-10-29 07:00 | DI.NM_ITS ---
APPROVED REPORT Exam: Exercise Treadmill Patient Location: Out-Patient Room/Bed: Stress Nurse: Niki Santos RN Ordering Provider:TOMMIE ARIAS, Contact Number: [phone] BMI: 26.57 Baseline Rhythm: Sinus Bradycardia Comment: occasional PVC Indications: CHEST PAIN Medical History Medical History: HLD, Bicuspid Aortic Valve Cardiac Medications: Simvastatin Allergies: No known drug allergies Cardiac Risk Factors: Hyperlipidemia, FHX of CAD Previous Cardiac Procedures: None Pretest Chest Pain Characteristics: None Exercise History: Physically active Physical Disabilities: None Lung Sounds: Clear to auscultation Heart Sounds: Regular, Murmur Stress Test Details Test: Exercise stress testing was performed using a Boston protocol. Nuclear Acquisition: Rest Tc-99m/Stress Tc-99m 1 day Rest Isotope: Tc-99m Sestamibi. Dose: 9.5 Date: 10/29/2021 Injection Time: 0900 Stress Isotope: Tc-99m Sestamibi. Dose: 31.0 Date: 10/29/2021 Injection Time: 1020 HR Resting HR Supine: 57 bpm Max Heart Rate (APMHR): 148.629498 bpm Resting HR Standin bpm Target HR (85% APMHR): 125.839742 bpm Max HR Achieved: 143 bpm % of APMHR: 96.62 Recovery HR: 68 bpm HR response to stress: Normal HR response to stress BP Resting BP Supine: 168/78 mmHg Resting BP Standin/76 mmHg Max BP: 210/60 mmHg Recovery BP: 162/72 mmHg BP response to stress: Normal blood pressure response to stress. Comment: Hypertensive at baseline. ECG Resting ECG: Sinus Bradycardia Ectopy: occasional PVC Stress ECG: Sinus Tachycardia ST Change: No significant ST segment changes noted Arrhythmia: PVCs, PVC couplets Recovery ECG: Sinus Rhythm Recovery ST Change: No significant ST segment changes noted Recovery Arrhythmia: PVCs, PVC couplets Clinical Reason for Termination: Fatigue Stress Symptoms: Dyspnea, Chest tightness, General Fatigue Exercise duration: 11 min06 sec Highest Stage Reached: Stage 4: 4.2 mph at 16% grade. Exercise capacity: 13.48 METs Mistry Treadmill Score: 7 Rate Pressure Product: [id number] Stress ECG Conclusion 1. Resting electrocardiogram was within normal limits 2. Patient exercised on the Boston protocol and completed a workload of 13.48 METS 3. Normal heart rate and blood pressure response to exercise. Patient achieved 96% of predicted hear t rate for age 4. There was no electrocardiographic evidence of myocardial ischemia 5. PVCs were seen 6. See MPI report Mistry Treadmill Score is 7 which is Low risk. Stress Test Summary STAGE Time (mins) Speed (mph) Grade (%) HR BP SpO2 SYMPTOMS METS Supine 57 168/78 Standing 65 154/76 97% 1 3 1.7 10 101 148/82 95% 4.5 2 6 2.5 12 109 168/88 7 3 9 3.4 14 110 170/84 95% 10 4 12 4.2 16 2/10 chest tightness 13 1 min recovery 112 184/62 3 min recovery 71 210/60 chest tightness resolved with rest. 6 min recovery 68 162/72 MPI Conclusion Normal myocardial perfusion without ischemia or evidence of prior infarction EF is 43%. Wall motion is normal Radiologist Interpretation Radiologist agrees with Manager Flight Operations's Interpretation. Radiologist Interpretation by: Owen Toro MD Interpretation Date/Time: 10/29/2021 17:27:45
== END ==
PROVIDERS: PCP Family Medicine; Visit Provider Family Medicine
DX: R07.9 Chest pain, unspecified (principal)
CPT/HCPCS: 78452; 93016; 93018; 93017

== ENCOUNTER 2021-11-12 10:10 | Emergency (ER) | payer MEDICARE, SELFPAY ==
[2021-11-12 10:20] VITALS: BP 126/64; PULSE 66; RESP 16; O2SAT 97
--- NOTE | 2021-11-12 11:04 | W.ED.GENAD ---
Discharge Plan Disposition Patient Disposition: HOME Condition: Stable Discharge Details Clinical Impression: Laceration of hand, left Primary Care Provider: Alonso Newell ED Provider: Richard Nesbitt Home Meds and New Rx's Prescriptions: Continued naproxen sodium [Aleve] 220 mg capsule 220 mg PO DAILY PRN simvastatin 10 mg tablet 10 mg PO DAILY Qty: 90 3RF finasteride [Proscar] 5 mg tablet 5 mg PO HS Qty: 90 3RF Rx Instructions: 1 TAB HS Discharge Instructions Instructions: Laceration (ED) Additional Instructions: return in 7-10 days to have the sutures evaluated for removal. Return sooner if signs of infections such as spreading redness or yellow/white discharge wear the finger splints for 3 days to allow the wound to start healing Medical Decision Making 71 yo male comes in with left hand lacerations. He was using a knife to cut a deer when it slipped and it cut the posterior left middle and index fingers, no falls or other injuries. He arrives stable, has a 4cm laceration between the pip and dip joints on the left middle finger, and a 2cm laceration between the dip and pip joints of the index finger, doesn't go over the joints and are superficial. He has intact sensation, normal capillary refill and full rom at all joints. No findings to suggest tendon or neurovascular injury, will require sutures to close both lacs closed without complications, advised to return in 7-10 days for suture removal and sooner if signs of infection Differential Diagnosis Differential Diagnosis: laceration, abrasion HPI General Mode of arrival: ambulatory. Date/Time Provider Initiated Documentation: 11/12/21 10:19. Limitations to Documentation: no limitations. Information obtained by: patient. History of Present Illness 71 year old M presents to the emergency department with the chief complaint of left hand lacerations, described as moderate, Patient started experiencing this hour(s) (1) and it has been constant. No relieving factors improve symptom(s), No exacerbating factors reported . Patient notes no other symptoms.. Related Data Home Medications Medication Instructions Recorded Confirmed naproxen sodium 220 mg capsule 220 mg PO DAILY PRN 01/11/19 11/12/21 (Aleve) simvastatin 10 mg tablet 10 mg PO DAILY #90 tabs 09/08/20 11/12/21 finasteride 5 mg tablet (Proscar) 5 mg PO HS #90 tab-caps 07/17/21 11/12/21 Previous Rx's Medication Instructions Recorded simvastatin 10 mg tablet 10 mg PO DAILY #90 tabs 09/08/20 finasteride 5 mg tablet (Proscar) 5 mg PO HS #90 tab-caps 07/17/21 Allergies Allergy/AdvReac Type Severity Reaction Status Date / Time No Known Allergies Allergy Verified 11/12/21 10:28 General Stated Complaint: Laceration SHEMAR: 4 Review of Systems All systems reviewed & are unremarkable except as noted in HPI and below Constitutional Constitutional: Denies chills, Denies fever(s) and Denies weakness Cardiovascular Cardiovascular: Denies chest pain and Denies dyspnea Respiratory Respiratory: Denies cough and Denies dyspnea Gastrointestinal Gastrointestinal: Denies abdominal pain, Denies nausea and Denies vomiting Integumentary/Breasts Skin/Breast: Denies rash Neurologic Neurologic: Denies weakness PFSH All Active Problems (Updated 11/12/21 @ 11:06 by Richard Nesbitt MD) Laceration of hand, left (Acute) Chest pain (Acute) Hyperlipemia (Acute) Chest pain (Acute) Gynecomastia (Acute) Gluten intolerance (Acute) Left inguinal hernia (Acute) Arthritis of carpometacarpal (CMC) joint of left thumb (Acute) Arthritis of carpometacarpal (CMC) joint of right thumb (Acute) 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 (Acute) Arthritis of both hands (Acute) Irregularly irregular pulse rhythm (Acute) EKG: SR will get holter Basal cell carcinoma of nose (Acute) Tubular adenoma (Acute) 01/08/02 01/09/16 Polyp of colon (Acute 01/09/16) adenoma, 01/08/2002 Onychomycosis (Acute) Migraine (Acute) Lumbago (Acute 10/26/12) Left knee pain (Acute 11/16/14) Foot pain (Acute 10/26/12) Bicuspid aortic valve (Acute) dental prophylaxis Benign prostatic hyperplasia (Acute) hematuria; -cysto Actinic keratosis of scalp (Acute) Medical History BPH (benign prostatic hypertrophy) with urinary obstruction Surgical History Arthroplasty of knee (12/08/14) LEFT KNEE MEDIAL MENISCUS/ Colonoscopy - IV Sedation (01/09/16) Mohs micrographic surgery 10/01/16 [facility] [place]; Left side of the nose Repair, Tendon or Muscle RIGHT ACHILLES TENDON S/P inguinal hernia repair (~09/08/19) [facility] [place] (L) Family History Mother , AGE 84 Essential hypertension Heart disease Hyperlipidemia Father , AGE 74 Essential hypertension Stroke Sister No problems noted. Sister No problems noted. Sister No problems noted. Son No problems noted. Daughter No problems noted. Daughter No problems noted. Social History Smoking/Tobacco Use Status: Never Second Hand Exposure: Yes Smoking risk assessment performed?: Yes Alcohol Intake: never Drug use: Never Substance use type: does not use Counseling given: No Counseling provided: none Caregiver/Support person: No Household members: spouse Housing: house Communication Needs: None Do you need help understanding health information?: Rarely Pets and animals: No Sexually active: No Do you think of yourself as: straight/heterosexual Current gender identity: male What is your relationship status?: How often do you talk on the phone with friends or family?: three or more times per week How often do you get together with friends or relatives?: once per week How often do you attend anglican or pentecostalism services?: 4 or more times per year Do you belong to any clubs or organized social groups?: yes Panel score (0-1 are the most socially isolated patients): 4 What type of physical activity do you participate in: walking, bicycling and other Details: snowshoeing Duration: 45-60 minutes/day Frequency: 3-4 times per week Lashonda/Synagogue: [employer] Special lashonda needs: No Seatbelt use: always Drive intox or ride w/intox 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 Do you feel safe at home: Yes Do you feel safe in your relationship?: Yes Exam Const General: no acute distress Orientation: alert [facility] Head: normal to inspection Ears: external ears normal General nose exam: external nose normal Mouth: moist mucous membranes Eyes General: appearance normal, both eyes and all related structures Neck Neck: normal visual inspection Resp Effort & Inspection: normal respiratory effort and able to speak in complete sentences Cardio Rate: regular rate Skin General skin exam: no rashes or lesions noted Neuro General: patient alert and patient oriented x3 Extrem General: full ROM and capillary refill normal Psych Mental Status: mental status grossly normal Course Vital Signs Vital signs: Vital Signs Pulse 66 11/12/21 10:20 Respiratory Rate 16 11/12/21 10:20 Blood Pressure 126/64 11/12/21 10:20 Pulse Oximetry 97 11/12/21 10:20 Pulse 66 11/12/21 10:20 Respiratory Rate 16 11/12/21 10:20 Respiratory Effort 11/12/21 10:24 Blood Pressure 126/64 11/12/21 10:20 Pulse Oximetry 97 11/12/21 10:20 Oxygen Delivery Method Room Air 11/12/21 10:20 Oxygen Flow Rate 0 11/12/21 10:20 Pain Level 2 11/12/21 10:20 Procedures Laceration Laceration 1: Site: hand Side (If applicable): left (middle finger) Size (cm): 4 Description: linear Depth: simple, single layer Local Anesthetic: Lidocaine 2% Amount of anesthesia used (mL): 5 Pre-repair: wound explored and irrigated extensively Skin layer closed with: nylon Size (cm): 5-0 Number of sutures: 6 Technique: simple, interrupted Laceration 2: Side (If applicable): left (index finger) Size (cm): 2 Description: linear Depth: simple, single layer Local Anesthetic: Lidocaine 2% Amount of anesthesia used (mL): 3 Pre-repair: wound explored Skin layer closed with: nylon Size (cm): 5-0 Number of sutures: 3 Technique: simple, interrupted
[2021-11-12] MEDS: Lidocaine 2% Multi-Dose 50 ML VIAL IJ (11:06)
== END 2021-11-12 11:30 | disposition home or self-care (01) ==
PROVIDERS: Emergency Provider Emergency Medicine; PCP Family Medicine
DX: S61.211A Laceration without foreign body of left index finger without damage to nail, initial encounter (principal); S61.213A Laceration without foreign body of left middle finger without damage to nail, initial encounter; Z23 Encounter for immunization; W26.0XXA Contact with knife, initial encounter; Y93.G1 Activity, food preparation and clean up
CPT/HCPCS: 12002; 90471; 99282

== ENCOUNTER → 2023-02-24 02:06 | Outpatient (CLI) | payer MEDICARE, SELFPAY ==
--- NOTE | 2023-02-24 07:00 | DI.MRI_ITS ---
Exam(s) MR ANGIO BRAIN WO EXAM: MR ANGIO BRAIN WO CLINICAL HISTORY: TIA,g45.9 TECHNIQUE: Performed on a 1.5 sri unit with [id number] sequence. IV contrast: None COMPARISON: No exams were available for comparison FINDINGS: ANTERIOR CIRCULATION: Both internal carotid arteries are patent in the skull base and cavernous sinus es. Supraclinoid aspects of these vessels are patent and nonaneurysmal. Both A1 segments are patent a s are both anterior cerebral arteries and there is no aneurysm at the level of the anterior communica ting artery. Both middle cerebral arteries are patent without significant stenosis nor aneurysms. POSTERIOR CIRCULATION: Both vertebral arteries contribute to the formation of the basilar artery at t he skull base. The basilar artery ascends with normal luminal diameter in the midline with no evidenc e of stenosis. Distally gives off superior cerebellar arteries and above this level terminates as philippe ateral posterior cerebral arteries. The right posterior cerebral artery also receives flow from a pos terior communicating artery on the right side of the [id number]-Ynmsaj. Both posterior cerebral arteri es are patent. There is no aneurysm at the tip of the basilar artery nor elsewhere in the [place]. MRV: There is no evidence of thrombosis of the dural sinuses There is an abnormal well-defined finding in left side of the brain measuring approximately 1.3 x 0.9 cm. This cannot be assessed accurately on these dedicated MRA images. IMPRESSION: 1. Patent intracranial arteries with no evidence of stenosis, intraluminal thrombus, aneurysms, nor e vidence of vascular malformation 2. There is an area of signal abnormality in left side of the brain which is partially included in th e field of view of this study. This cannot be assessed accurately on and MRA study but would require conventional brain MRI imaging. DATA REPOSITORY:
--- NOTE | 2023-02-24 07:00 | DI.MRI_ITS ---
Exam(s) MR ANGIO NECK WO EXAM: MRA (MR ANGIOGRAPHY) OF THE NECK CLINICAL HISTORY: TIA. TECHNIQUE: Performed on 1.5 sri unit with [id number] sequence CONTRAST MATERIAL: IV Contrast: None COMPARISON: None. FINDINGS: ANTERIOR CIRCULATION: Both common carotid arteries ascend with normal luminal diameters. there is no evidence of significant atherosclerotic narrowing at the level the carotid bulbs and proximal interna l carotid arteries and both internal carotid arteries are demonstrated to be normal diameter within t he upper neck and skull base. POSTERIOR CIRCULATION: The vertebral arteries originate in conventional fashion off of the subclavian arteries without evidence of significant stenosis at their origins. Both vertebral arteries ascend w ith normal equal luminal diameters within the foramen transverse area with no evidence of intralumina l thrombus nor dissection. At the skull base both equal diameter vertebral arteries contribute to the formation of the basilar artery. IMPRESSION: 1. Patent carotid arteries in the neck with no evidence of significant plaque nor narrowing. 2. Patent vertebral arteries in the neck. Both vertebral arteries contribute to the formation of the basilar artery at the skull base. DATA REPOSITORY:
== END ==
PROVIDERS: PCP Family Medicine; Visit Provider Family Medicine
DX: G45.9 Transient cerebral ischemic attack, unspecified (principal); R94.02 Abnormal brain scan
CPT/HCPCS: 70544; 70547

== ENCOUNTER → 2023-03-10 00:47 | Outpatient (CLI) | payer MEDICARE, SELFPAY ==
--- NOTE | 2023-03-10 07:00 | DI.MRI_ITS ---
Exam(s) MR BRAIN WO EXAM: MR BRAIN WO CLINICAL HISTORY: ? lesion seen on left brain on MRA,g93.9,f/U ABNL mra,TIA TECHNIQUE: Multiplanar multisequence MRI of the brain was performed. COMPARISON: MR MR ANGIO BRAIN WO from 02/24/2023 FINDINGS: CEREBRAL PARENCHYMA: There is no evidence of intracranial hemorrhage, mass effect, or shift of midline structures. There are no extra-axial fluid collections. Ventricles are not enlarged or shifted. There is no significant focal signal abnormality in the cerebellar hemispheres nor within the montserrat, m idbrain, and thalami. There is a well-defined focus of fluid signal abnormality in the left parietal lobe, exhibiting a thi n internal septation. This finding measures 1.3 cm AP by 0.8 cm wide by 0.8 cm craniocaudal. It is not associated with hemorrhage, surrounding edema, nor restricted diffusion. Has a benign appearance . There are no other similar findings elsewhere in the brain. There is no significant focal signal abnormality evident on diffusion imaging to suggest acute ischem ic event. PITUITARY GLAND: No mass nor parasellar abnormality. No obvious abnormality in the cavernous sinuses. FLOW VOIDS: The expected flow void are noted. No evidence of obvious aneurysm nor obvious vascular ma lformation. PARANASAL SINUSES: The visualized paranasal sinuses appear unremarkable. No obvious finding ORBITS: No obvious findings. IMPRESSION: There is a well-defined benign-appearing cystic lesion in the left parietal lobe measuring 13 x 8 x 8 mm and exhibiting a single thin benign-appearing internal septation. There is no surrounding edema, associated hemorrhage, nor evidence of restricted diffusion. Recommend follow-up MRI in 6 months to ensure stability. Alternatively comparison to any prior outsi de brain imaging studies would be helpful. DATA REPOSITORY:
== END ==
PROVIDERS: PCP Family Medicine; Visit Provider Family Medicine
DX: G93.9 Disorder of brain, unspecified (principal)
CPT/HCPCS: 70551

== ENCOUNTER → 2023-03-27 00:29 | Outpatient (CLI) | payer MEDICARE, SELFPAY ==
--- NOTE | 2023-03-27 12:35 | DI.US_ITS ---
APPROVED REPORT EXAM: Comprehensive 2D, Doppler, and color-flow Echocardiogram Patient Location: Out-Patient Java Scala Developer: Antonia Gibbs RDCS (AE) Indications: TIA Other Information Study Quality: Good Conclusion Normal left ventricular wall thickness and chamber size. Ejection fraction is 60-65%. Wall motion i s normal Normal right ventricular size and systolic function Both atria are mildly dilated Aortic valve is calcified and trileaflet with moderate stenosis. Peak gradient is 41 mmHg, mean is 2 8. There is moderate aortic Regurgitation Mitral annular calcification. Mild to moderate regurgitation Normal tricuspid valve with mild regurgitation. Estimated right ventricular pressure is 33 mm Hg Mildly dilated ascending aorta Wall motion Left Ventricle The left ventricle is normal size. The left ventricular systolic function is normal. The left ventric ular ejection fraction is within the normal range. There is normal left ventricular wall thickness. T here is normal LV segmental wall motion. The left ventricular diastolic function is normal. There is no ventricular septal defect visualized. LVEF is 60-65%. Right Ventricle The right ventricle is normal size. The right ventricular systolic function is normal. Atria Left atrium is mildly dilated. The right atrium size is mildy dilated The interatrial septum is intac t with no evidence for an atrial septal defect. Aortic Valve Aortic valve is calcified. Aortic valve is trileaflet. Moderate aortic stenosis. Highest mean aortic valve gradient is28.04_mmHg. Peak aortic valve gradient is 48.05_mmHg. Calculated MARICHUY by the continui ty equation is 1.1_cm2. Moderate aortic regurgitation. Mitral Valve Mild mitral annular calcification. No evidence of mitral valve stenosis. Mild to moderate mitral regu rgitation. Tricuspid Valve The tricuspid valve is normal in structure. There is no tricuspid valve stenosis. Mild tricuspid regu rgitation. The RVSP is 33.0 mmHg. Pulmonic Valve The pulmonary valve is normal in structure. There is no pulmonic valvular stenosis. Trace pulmonic re gurgitation. Great Vessels The aortic root is normal in size. The ascending aorta is mildly dilated. Aortic arch is normal in ca liber. IVC is normal in size and collapses >50% with inspiration. Pericardium There is no pericardial effusion. Technically limited subcostal imaging, body habitus. 2D Dimensions IVSD d PLAX 1.20 cm M: 0.6-1.2 Ao Root d 3.32 cm M: 3.1 - 3.7 LVPW d PLAX 1.20 cm M: 0.6 - 1.2 Ao Asc Diam d 3.74 cm M: 2.6 - 3.4 LVID d PLAX 5.17 cm M: 4.2 - 5.8 LVDs 3.52 cm M: 2.5 - 4.0 LV EF Teichholz 59.6 % FS 31.86 % LV EDV (Teich) 127.6 mL LV ESV (Teich) 51.6 mL M-Mode TAPSE 2.79 cm (M/F) >1.7 Auto EF LV EDV A4C 142.6 mL LV EDV A2C 173.0 mL LV EDV BP 157.8 mL LV ESV A4C 59.2 mL LV ESV A2C 59.9 mL LV ESV BP 60.1 mL LVEF(%) A4C 58.5 % LVEF(%) A2C 65.4 % LVEF(%) BP 61.9 % LV SV A4C 83.4 ml LV SV A2C 113.1 ml LV SV BP 97.8 ml LV CO A4C 4.1 L/min LV CO A2C 5.5 L/min LV CO BP 4.8 L/min HR A4C 49.59 BPM HR A2C 48.38 BPM LV EDV Index (BP) LV Strain Long Pk Overal Avg (s) 20.08 RV Strain Global Peak Long. Strain A4C 19.84 Global Peak Long. Strain A4C FW 23.41 LA Volume LA Length A4C 6.1 cm LA Length A2C 6.0 cm LA Area A4C s 24.17 cm2 LA Area A2C s 25.26 cm2 LA Vol A4C A-L 80.73 mL LA Vol A2C A-L 89.58 mL LA Vol Biplane A-L 85.7 mL LA Vol/BSA A4C A-L LA Vol/BSA A2C A-L LA Vol/BSA BP A-L 43.1 mL/m2 LA Vol A4C MOD 75.2 mL LA Vol A2C MOD 84.4 mL LA Vol BP MOD 80.2 mL RA Volume RA Area A4C 13.9 cm2 RA ESV A4C (A-L) 34.6mL RA Vol/BSA A4C A-L RA Length A4C 4.7 cm RA ESV A4C (MOD) 32.9mL LV Diastology MV E' medial 0.085 (>0.07 m/s) MV E Vmax 0.64 (0.4-1.3 m/s) MV E/E' MED 7.50 (<14) MV A Vmax 0.60 (0.4-1.3 m/s) MV E' lateral 0.087 (>0.1 m/s) E/A Ratio 1.1 MV E/E' LAT 7.31 (<14) MV E' Average 0.086 m/s MV E/E'(average) 7.40 Aortic Valve AoV Vmax 3.47 m/s LVOT Vmax 1.21 m/s AoV Peak Grad 64.3 mmHg LVOT Peak Grad 5.8 mmHg AoV Area (Vmax) 1.10 cm2 LVOT VTI 0.328 m AoV VTI 0.934 m LVOT Mean Grad 3.7 mmHg AoV Mean Kamari. 2.51 m/s LVOT SV 103.06 mL AoV Mean Grad 28.0 mmHg LVOT Diam s 2.00 cm AoV Area (VTI) 1.10 cm2 AV Regurg Peak Gr. 80.70 mmHg Velocity Ratio 0.35 AR Decel Breathitt 2.5m/sec2 AR DT 1805 msec AR PHT 524 msec AR Vmax 4.49 m/s Mitral Valve MV DT 215 (160-240 msec) MV Vmax TIPS 0.84 m/s MV Mean Grad 0.9 (<2mmHg) MV VTI 0.327 m Pulmonary Valve PV Vmax 1.17 (0.5-1.5 m/s) RVOT Vmax 0.67 m/s PV Peak Grad 5.5 mmHg RVOT Peak Gr. 1.8 mmHg PV Mean Kamari 0.65 m/s RVOT VTI 0.157 m PV Mean Grad 2.2 mmHg RVOT Mean Gr. 0.9 mmHg Tricuspid Valve RA Pressure 3.00 mmHg TR Vmax 2.74 m/s TV S' 0.12 m/s TR Peak Grad 30.0 mmHg RVSP (TR) 33.0 mmHg
== END ==
PROVIDERS: PCP Family Medicine; Visit Provider Family Medicine
DX: G45.9 Transient cerebral ischemic attack, unspecified (principal)
CPT/HCPCS: 93306

== ENCOUNTER 2023-08-11 11:01 | Outpatient (CLI) | payer MEDICARE, SELFPAY ==
--- NOTE | 2023-08-11 12:23 | W.CARDEVENT ---
Date of service: 08/11/23 Time of Service: 12:23 Cardiac Event Recorder Referring Provider:: Alonso Newell Indications:: TIA Cardiac Event Note: This is a cardiac event monitor. Patient was monitored for 26 days 9 hours Predominant rhythm was sinus. Average heart rate was 65. Minimum was 53, maximum 109. There were rare ventricular ectopic beats. There was 1 run of nonsustained ventricular tachycardia 7 beats in duration There was no atrial fibrillation, no high-grade AV block, no pauses greater than 3 seconds There were no apparent patient symptoms
== END 2023-08-11 11:02 | disposition home or self-care (01) ==
LOC: CARDOPNVT 11:01
PROVIDERS: PCP Family Medicine; Visit Provider Internal Medicine Cardiovascular Disease
DX: I47.20 Ventricular tachycardia, unspecified (principal); G45.9 Transient cerebral ischemic attack, unspecified
CPT/HCPCS: 93272

== ENCOUNTER 2023-08-25 03:31 | Outpatient (CLI) | payer MEDICARE, SELFPAY ==
[2023-08-25 12:25] LABS: Hemoglobin A1C 5.6 % (<5.7)
[2023-08-25 12:29] LABS: Calculated LDL 80 mg/dL (<100); Cholesterol 158 mg/dL (<200); HDL Cholesterol 66 mg/dL (40-60); Triglyceride 62 mg/dL (<150)
== END 2023-08-25 03:32 | disposition home or self-care (01) ==
LOC: LOS 03:31
PROVIDERS: PCP Family Medicine; Visit Provider Family Medicine
DX: E78.5 Hyperlipidemia, unspecified (principal); E11.51 Type 2 diabetes mellitus with diabetic peripheral angiopathy without gangrene; I70.209 Unspecified atherosclerosis of native arteries of extremities, unspecified extremity
CPT/HCPCS: 36415; 80061; 83036

== ENCOUNTER 2024-09-19 01:24 | Outpatient (CLI) | payer MEDICARE, SELFPAY ==
--- NOTE | 2024-09-19 06:45 | DI.NM_ITS ---
APPROVED REPORT Exam: Pharmacologic Patient Location: Out-Patient Room/Bed: Stress Nurse: Sabrina Sheppard RN Ordering Provider:TOMMIE ARIAS, Contact Number: [phone] BMI: 24.24 Baseline Rhythm: Sinus Bradycardia Indications: Dyspnea on exertion Medical History Medical History: BPH, bicuspid aortic valve, irregularly irregular pulse, migraines, brain lesion, TIA, HLD, chest pain Cardiac Medications: Finasteride Allergies: NKA Cardiac Risk Factors: Family hx, HLD Previous Cardiac Procedures: None Pretest Chest Pain Characteristics: None Exercise History: Physically active Physical Disabilities: None Lung Sounds: Clear to auscultation Heart Sounds: Murmur, Regular Stress Test Details Test: Exercise stress converted to pharmacologic stress due to failure to obtain a diagnostic stress test. Reason for pharmacologic stress test: changed from exercise stress test due to inability to reach target heart rate. Nuclear Acquisition: Rest Tc-99m/Stress Tc-99m 1 day Rest Isotope: Tc-99m Sestamibi. Dose: 10.0 Date: 09/19/2024 Injection Time: 1100 Stress Isotope: Tc-99m Sestamibi. Dose: 30.0 Date: 09/19/2024 Injection Time: 1300 HR Resting HR Supine: 58 bpm Max Heart Rate (APMHR): 145 bpm Resting HR Standin bpm Target HR (85% APMHR): 123 bpm Max HR Achieved: 125 bpm % of APMHR: 86 Recovery HR: 71 bpm HR response to stress: Blunted HR response to stress BP Resting BP Supine: 126/72 mmHg Resting BP Standin/74 mmHg Max BP: 136/72 mmHg Recovery BP: 132/78 mmHg BP response to stress: Blunted blood pressure response to stress. ECG Resting ECG: Sinus Bradycardia, nonspecific ST-T abnormalities Ectopy: None Stress ECG: Sinus Tachycardia ST Change: Nondiagnostic resting ST abnormalities, No significant ST segment changes noted Arrhythmia: Occasional PAC's, occasional PVC's, couplets, bigeminy Recovery ECG: Sinus Rhythm Recovery ST Change: Nondiagnostic resting ST abnormalities, No significant ST segment changes noted Recovery Arrhythmia: None Clinical Reason for Termination: Staff concern r/t incline, patient request to stop, inability to reach target HR Stress Symptoms: Mod SOB, , General Fatigue Exercise duration: 12 min49 sec Highest Stage Reached: Stage 4: 4.2 mph at 16% grade. Exercise capacity: 11.34 METs Angina Score: None Mistry Treadmill Score: 12.1 Rate Pressure Product: [id number] Stress ECG Conclusion 1. Resting electrocardiogram showed poor R wave progression 2. Patient underwent testing using a combination of exercise and pharmacologic stress with regadenoson 3. Patient completed a workload of 11 METS 4. Excellent heart rate achieved was 86% of maximal predicted for age 5. There was no electrocardiographic evidence of myocardial ischemia 6. There were no significant dysrhythmias 7. See MPI report Mistry Treadmill Score is 12.1 which is Low risk. Stress Test Summary STAGE Time (mins) Speed (mph) Grade (%) HR BP SpO2 SYMPTOMS METS Supine 58 126/72 Standing 56 128/74 1 3 1.7 10 79 118/72 4.5 2 6 2.5 12 104 7 3 9 3.4 14 111 10 1 min post Lexiscan injection 90 118/76 3 min post Lexiscan injection 88 116/62 6 min post Lexiscan injection 74 136/72 9 min post Lexiscan injection 71 132/78 Patient request to stop treadmill r/t to fatigue and mod SOB. Treadmill also stopped r/t staff concern with incline and patient balance. Patient c/o generalized fatigue and mod SOB although he did note that he did not experience the level of SOB which caused him to be evaluated and have exam. All symptoms resolved by test and and patient proceeded to imaging ambulatory in no apparent distress. MPI Conclusion Myocardial perfusion was normal. There was no ischemia or evidence of prior myocardial infarction Ejection fraction was within the range of normal. Wall motion was normal
[2024-09-19] MEDS: Regadenoson 0.4 MG/5 ML SYR IVP (13:15)
== END 2024-09-19 01:44 ==
LOC: DI 01:24
PROVIDERS: PCP Family Medicine; Visit Provider Internal Medicine Cardiovascular Disease
DX: R06.09 Other forms of dyspnea (principal)
CPT/HCPCS: 78452; 93016; 93018; 93017; J2785